=== PATIENT | male | born 1990 | race Caucasian/White ===

== ENCOUNTER 2017-10-16 10:47 | Emergency (ER) | payer BC, OTHER ==
[~2017-10-16] VITALS: Ht 182.9 cm; Wt 70.3 kg
[2017-10-16 11:16] VITALS: BP 117/69
[2017-10-16 11:45] VITALS: BP 117/69
[2017-10-16] MEDS ORDERED: Rabies Vaccine IM ONE (12:15)
[2017-10-16] MEDS ORDERED: Augmentin 875mg Tab ORAL ONE (12:15)
[2017-10-16] MEDS ORDERED: Tetanus/Diptheria/Pertussis Vaccine 0.5ml Syr IM ONE (12:30)
[2017-10-16] MEDS ORDERED: Bacitracin Oint UD TOPIC ONE (12:30)
[2017-10-16] MEDS ORDERED: AUGMENTIN 875-1 EAC1 ORAL (13:02)
--- NOTE | 2017-10-16 16:18 | Emergency Room Report ---
History of Present Illness General Chief Complaint: Animal Bite Source: Patient Present Illness HPI Mr. Kurtz is a healthy 27 yo male who was bitten by a stray pit bull in his neighborhood. He does not know the identity of the dog. He has moderately severe left forearm pain with small laceration. Allergies: Coded Allergies: No Known Allergies (Unverified , 10/16/17) Nursing Documentation-H Past Medical History: No Stated History Review of Systems Constitutional: Denies: fever, malaise Neurological: Denies: paresthesia, tingling Physical Exam Vital Signs Date Time Temp Pulse Resp B/P (MAP) Pulse Ox O2 Delivery O2 Flow Rate FiO2 10/16/17 10:52 98.2 105 20 117/69 97 Room Air 98.2 Sp02 EP Interpretation: reviewed, normal General Appearance: normal inspection, well appearing, no apparent distress, alert, GCS 15, non-toxic Eyes: bilateral eye normal inspection Respiratory: no respiratory distress Musculoskeletal: gait/station normal, other - MUR distally intact, soft compartments in the forearm 3 cm superfical mid foream laceration Neurologic: alert Psychiatric: normal inspection, judgement/insight normal, memory normal Medical Decision Making Diagnostic Impression: Primary Impression: Dog bite ER Course dog bite to left forearm, Tdap booster provided, Augmentin and rabies vaccine given. sutures not indicated for superficial wound. steristrips applied by nurse. given clinic referral for rabies vaccine series, no rabies immune globulin available here Last Vital Signs Date Time Temp Pulse Resp B/P (MAP) Pulse Ox O2 Delivery O2 Flow Rate FiO2 10/16/17 13:08 98.2 10/16/17 11:45 20 117/69 97 Room Air 10/16/17 10:52 105 Disposition: HOME, SELF-CARE Condition: Stable Scripts Amoxicillin/Potassium Clav 875-125* (AUGMENTIN 875-125 TABLET*) 1 Each Tablet 1 TAB ORAL TWICE A DAY for 7 Days, #14 TAB Prov: Emliie Gomes MD 10/16/17 Departure Forms: Return to Work Return to Work in (Days): 1 Patient Instructions: Animal Bite Emilie Gomes MD Oct 16, 2017 16:18
== END 2017-10-16 11:45 | disposition home or self-care (01) ==
LOC: EMR 11:05
DX: S50.822A Blister (nonthermal) of left forearm, initial encounter (principal); Z23 Encounter for immunization; W54.0XXA Bitten by dog, initial encounter; Y92.89 Other specified places as the place of occurrence of the external cause; Y99.9 Unspecified external cause status
CPT/HCPCS: 90471; 99283; G0009; 90715